=== PATIENT | male | born 1960 | race Caucasian/White ===

== ENCOUNTER 2017-03-03 06:34 | Day surgery (SDC) | payer OTHER ==
--- NOTE | ~2017-03-03 | EGD ---
EGD REPORT [facility] [address] [id number] NAME: BALDEV BLACKBURN : 60 STATUS : REG [facility]#: [id number] AGE: 56 ADM/REG DATE : 03/03/17 MR#: [id number] REPORT SERV DATE: 03/03/17 DICTATED BY: RACHEAL HARTMAN DATE: 03/03/17 REPORT STATUS : Draft [facility]ANS[facility]IBED BY: [facility] DATE: 03/03/17 Endoscopy Center Patient Name: Baldev Blackburn Date of : 1960 Attending MD: RACHEAL HARTMAN MD Procedure Date No Time: 03/03/2017 Procedure: Upper GI endoscopy Indications: Dysphagia Referring MD: ION EDDY MD Medicines: Sedation Required Anesthesia Staff Assistance Complications: No immediate complications. Estimated blood loss: Minimal. Procedure: Pre-Anesthesia Assessment: - ASA Grade Assessment: III - A patient with severe systemic disease. After obtaining informed consent, the endoscope was passed under direct vision. Throughout the procedure, the patient's blood pressure, pulse, and oxygen saturations were monitored continuously. The GIF [id number] was introduced through the mouth, and advanced to the third part of duodenum. The upper GI endoscopy was accomplished without difficulty. The patient tolerated the procedure well. Findings: LA Grade C (one or more mucosal breaks continuous between tops of 2 or more mucosal folds, less than 75% circumference) esophagitis with no bleeding was found in the lower third of the esophagus. Biopsies were taken with a cold forceps for histology. A benign-appearing, intrinsic mild stenosis was found at the gastroesophageal junction and was traversed. A guidewire was placed and the scope was withdrawn. Dilation was performed with a Savary dilator with mild resistance at 51 Fr and mild resistance at 54 Fr. Patchy mildly erythematous mucosa without bleeding was found in the gastric antrum. Biopsies were taken with a cold forceps for histology. The examined duodenum was normal. Impression: - LA Grade C reflux esophagitis. Rule out Crisostomo's esophagus. Biopsied. - Benign-appearing esophageal stricture. Dilated. - Erythematous mucosa in the antrum. Biopsied. - Normal examined duodenum. Recommendation: - Discharge patient to home. - Patient has a contact number available for EGD REPORT [address] [address] NAME: BALDEV BLACKBURN : [birth year] STATUS : REG [facility] PAT#: [id number] AGE: 56 ADM/REG DATE : 03/03/17 MR#: [id number] REPORT SERV DATE: 03/03/17 DICTATED BY: RACHEAL HARTMAN DATE: 03/03/17 REPORT STATUS : Draft TRANSCRIBED BY: charity: [facility] DATE: 03/03/17 emergencies. The signs and symptoms of potential delayed complications were discussed with the patient. Return to normal activities tomorrow. Written discharge instructions were provided to the patient. - Soft diet today. - Patient has a contact number available for emergencies. The signs and symptoms of potential delayed complications were discussed with the patient. Return to normal activities tomorrow. Written discharge instructions were provided to the patient. - Continue present medications. - Use Protonix (pantoprazole) 40 mg PO daily daily. - Await pathology results. - Return to my office in 3 months. Procedure Code(s): --- Professional --- 04843, Esophagogastroduodenoscopy, flexible, transoral; with insertion of guide wire followed by passage of dilator(s) through esophagus over guide wire 21360, Esophagogastroduodenoscopy, flexible, transoral; with biopsy, single or multiple Diagnosis Code(s): --- Professional --- K21.0, Gastro-esophageal reflux disease with esophagitis K22.2, Esophageal obstruction K31.9, Disease of stomach and duodenum, unspecified R13.10, Dysphagia, unspecified CPT copyright 2013 [employer]. All rights reserved. The codes documented in this report are preliminary and upon inventory administrator review may be revised to meet current compliance requirements. RACHEAL HARTMAN MD 03/03/2017 8:15 AM This report has been signed electronically. Number of Addenda: 0 Note Initiated On: 03/03/2017 7:47 AM Scope Withdrawal Time 0 hours 0 minutes 0 seconds [address] [address]
[~2017-03-03 06:34] MED LIST: ASAB PO; LIPITOR10 PO; ZESTRIL10 MG PO
== END 2017-03-03 23:59 | disposition home health service (06) ==
LOC: DMU 06:34
PROVIDERS: Internal Medicine Gastroenterology
PROC: 0D748ZZ Dilation of Esophagogastric Junction, Via Natural or Artificial Opening Endoscopic (ICD-10-PCS; 2017-03-03)
PROC: 0DB38ZX Excision of Lower Esophagus, Via Natural or Artificial Opening Endoscopic, Diagnostic (ICD-10-PCS; principal; 2017-03-03 07:30)
PROC: 0DB68ZX Excision of Stomach, Via Natural or Artificial Opening Endoscopic, Diagnostic (ICD-10-PCS; 2017-03-03 07:30)
DX: K29.50 Unspecified chronic gastritis without bleeding (principal); K21.0 Gastro-esophageal reflux disease with esophagitis; K22.2 Esophageal obstruction; K31.9 Disease of stomach and duodenum, unspecified; I10 Essential (primary) hypertension; I25.10 Atherosclerotic heart disease of native coronary artery without angina pectoris; I25.2 Old myocardial infarction; E78.00 Pure hypercholesterolemia, unspecified; M19.90 Unspecified osteoarthritis, unspecified site; J44.9 Chronic obstructive pulmonary disease, unspecified; Z88.5 Allergy status to narcotic agent; F17.210 Nicotine dependence, cigarettes, uncomplicated; Z95.1 Presence of aortocoronary bypass graft; Z79.82 Long term (current) use of aspirin; Z79.899 Other long term (current) drug therapy; Z98.890 Other specified postprocedural states
CPT/HCPCS: 88305